=== PATIENT | female | born 1980 | race Caucasian/White ===

== ENCOUNTER 2017-06-23 05:55 | Day surgery (SDC) | payer OTHER ==
--- NOTE | 2017-06-17 15:42 | GHP ---
[f rep st] PREOP HISTORY AND PHYSICAL DATE OF ADMISSION: 06/23/2017 TIME OF SURGERY: 7:15 a.m. SURGERY TO BE PERFORMED: Hysteroscopy, dilation and curettage, Misa endometrial ablation and a la paroscopic salpingectomy. PREOPERATIVE DIAGNOSIS: 1. Severe menometrorrhagia with bleeding disorder. 2. Multiparous, desires permanent elective sterilization. HISTORY OF PRESENT ILLNESS: The patient is a 37-year-old, 3, para 3-0-0-3, who has a longsta nding history of severe menometrorrhagia and heavy vaginal bleeding, as well as dysfunctional uterine bleeding midcycle and episodes of postcoital bleeding. She has a bleeding disorder. 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 We have followed he r for several years and talked about treatment methods to decrease her bleeding, including oral contr aceptive pills, Mirena IUD, or surgical management. The patient was initially unsure if she wanted t o have more children, had she completed her childbearing, and was reluctant to start contraception. She now has had several years of heavy bleeding requiring IV iron transfusions secondary to severe to fatigue during her cycles and post cycles. She has now decided that she has completed her childbear ing and desires treatment for her bleeding disorder. We discussed, again, treatment options with con traception, Mirena IUD, endometrial ablation versus a total laparoscopic hysterectomy. The patient h as had 3 C sections and wishes to avoid a large surgery, wishes to have minimally invasive surgery. Therefore, she wishes to have the hysteroscopy, D and C, and endometrial ablation first. She is awar e that if her bleeding recurs or worsens, she will need a definitive surgery with a hysterectomy. The patient is followed by Dr. Galvan at [facility], who performs her IV iron therap y and monitors her blood work. He has recommended that she get a platelet transfusion if there is bl eeding intraoperatively that is difficult to control. GYNECOLOGICAL HISTORY: She has a normal menstrual triad with menarche at age 14. Cycles are regular , every 28-30 days, length 4-5 days, very heavy because of her bleeding disorders, soaking multiple p ads an hour, passing large clots. She also has bleeding midcycle and postcoital bleeding. She has n o history of any abnormal Paps. Her last Pap was in March of 2017. It was normal. No history of any STDs. PAST OB HISTORY: In February of 2005, she had a viable male by secondary to arrest of descent a nd chorio. In March of 2007, she had a viable female with a repeat , and in August of 2012 , she had a viable male, 6 pounds 12 ounces, repeat . During that , she had cervic al shortening and needed a cerclage. No other complications in the pregnancies. PAST MEDICAL HISTORY: Significant for her severe anemia, reflux, and her artifactual thrombocytopeni a. She occasionally has some vocal cord dysfunction. She has a history of severe mastitis breastfee ding her second baby, required IV antibiotics. PAST SURGICAL HISTORY: History of x3, laparoscopic cholecystectomy in 2004, bunion surgery in 1998. ALLERGIES: She is sensitive to latex. She gets hives from benzoyl peroxide. Bactrim gives her GI u pset. CURRENT MEDICATIONS: Include Prilosec 20 mg daily. SOCIAL HISTORY: She is . She lives with her , Kyle, and her 3 children. She is a re gistered nurse. However, she is currently a ultw-sn-ldyp mom and she home schools her 3 kids. She d enies tobacco, alcohol, or drug use. She has 1 caffeinated beverage a day. FAMILY HISTORY: Her mother passed from complications of diabetes and MRSA. Her 4-year-old is recent ly diagnosed with autism and is in behavioral therapy. Maternal aunt had breast cancer at age 49. H er mother and her maternal grandmother had an ID. Heart disease in her mother and her paternal grand mother. Her father has chronic hypertension, as did her mother, maternal grandfather had emphysema. Mother was a type 1 diabetic and had end-stage renal disease. PHYSICAL EXAMINATION: VITAL SIGNS: Blood pressure is 106/68, weight is 135. GENERAL: She is a pale-appearing, normal female in no acute distress. LUNGS: Clear to auscultation bilaterally. HEART: Regular rate and rhythm, no murmur. ABDOMEN: Soft, nontender, nondistended. Normal bowel sounds. PELVIC: Uterus is anteverted, anteflexed, normal cervix. No adnexal masses. LABORATORY DATA: Most recent ultrasound, she has a very small intramural fibroid measuring less than 1 cm. Her endometrial lining is normal at 0.54. She has normal ovaries. No free fluid. ASSESSMENT AND PLAN: 37-year-old, 3, para 3-0-0-3 with a longstanding history of menometrorr hagia due to artifactual thrombocytopenia. The patient is multiparous, desires permanent elective st erilization and is ready for her endometrial ablation. She was consented for the procedure. She understood the risks and benefits. The risks including ble eding, infection, damage to internal organs, uterus, tubes, ovaries, bowel, bladder, nerves, blood ve ssels, ureters, need for open procedure, need for additional procedures and for the hysteroscopy, bharati ctrolyte abnormalities, and incomplete treatment of bleeding, need for definitive procedure at a late r time. She understood these risks and benefits and agreed to proceed. /[id number]/MODL
[2017-06-22 16:37] LABS: % IMMATURE GRANULYOCYTES 0.2 % (0.0-1.1); ABSOLUTE IMMATURE GRANULOCYTES 0.01 10^3/uL (0.00-0.10); ADD DIFF? NO; ADD MORPH? NO; ADD SCAN? NO; ATYPICAL LYMPHOCYTE FLAG 40 (0-99); FRAGMENT RBC FLAG 0 (0-99); HEMOGLOBIN 13.8 g/dL (12.6-16.3); LEFT SHIFT FLG 0 (0-99); LIPEMIA HEMOLYSIS FLAG 90 (0-99); MEAN CELL HEMOGLOBIN 32.3 pg (27.9-34.1); MEAN CELL HEMOGLOBIN CONCENTR. 34.5 g/dL (32.4-36.7); MEAN CELL VOLUME 93.7 fL (81.5-99.8); MEAN PLATELET VOLUME 12.1 fL (8.7-11.7); PLATELET CLUMPS FLAG 0 (0-99); PLATELET COUNT 210 10^3/uL (150-400); RED BLOOD CELL COUNT 4.27 10^6/uL (4.18-5.33); RED CELL DISTRIBUTION WIDTH 12.2 % (11.5-15.2)
[2017-06-23] MEDS ORDERED: LIDOCAINE 1% 2 ML INJ ID PRN (06:14)
[2017-06-23] MEDS ORDERED: LR 1,000 ML IV ONE (06:14)
[2017-06-23] MEDS ORDERED: LIDOCAINE 1% 2 ML INJ ONE (06:19)
[2017-06-23 06:43] VITALS: PULSE 110
[2017-06-23] MEDS ORDERED: BUPIVACAINE/EPI 0.5% 30 ML SDV ONE (06:58)
[2017-06-23] MEDS ORDERED: SILVER NITRATE APPLICATOR 1 APPL TP ONE (06:59)
[2017-06-23] MEDS ORDERED: MIDAZOLAM 2 MG/2 ML VIAL IVP ONE (07:17)
--- NOTE | 2017-06-23 07:18 | PDANEPAE ---
ANE History of Present Illness laparoscopy ANE Past Medical History - Cardiovascular History Hx Hypertension: No Hx Arrhythmias: No Hx Chest Pain: No Hx Coronary Artery / Peripheral Vascular Disease: No Hx CHF / Valvular Disease: No Hx Palpitations: No Cardiovascular History Comment: Pseudo Thrombocytopenia- blood will clump in any blood tube. - Pulmonary History Hx COPD: No Hx Asthma/Reactive Airway Disease: No Hx Recent Upper Respiratory Infection: No Hx Oxygen in Use at Home: No Hx Sleep Apnea: No Sleep Apnea Screening Result - Last Documented: Negative Pulmonary History Comment: denies asthma- Tx at [facility] for vocal cord Dysfunction - Neurologic History Hx Cerebrovascular Accident: No Hx Seizures: No Hx Dementia: No - Endocrine History Hx Diabetes: No - Renal History Hx Renal Disorders: No - Liver History Hx Hepatic Disorders: No - Neurological & Psychiatric Hx Hx Neurological and Psychiatric Disorders: No - Cancer History Hx Cancer: No - Congenital Disorder History Hx Congenital Disorders: No - GI History Hx Gastrointestinal Disorders: Yes Gastrointestinal History Comment: acid reflux - Laryngeal Pharyngeal Reflux - Other Health History Other Health History: Excessive bleeding w/menses:Tx w/Fereheme x2 April 2017;. vocal cord Dysfunction dx'd at [facility]- tx w/Zantac for GERD - Chronic Pain History Chronic Pain: Yes (painful periods) - Surgical History Prior Surgeries: C Section x3 (1st and last under [place]) 2011, 2006,2004. ana 2004;. L bunionectomy . L ft hardwre removal ; ANE Review of Systems Review of Systems: - Exercise capacity METS (RN): 4 METS ANE Patient History - Allergies Allergies/Adverse Reactions: adhesive tape Adverse Reaction (Mild, Verified 06/23/17 06:31) Rash BENZOPEROXIDE Allergy (Intermediate, Uncoded 06/23/17 06:31) Hives LATEX Allergy (Mild, Uncoded 05/22/17 15:15) Rash - Home Medications Home Medications: Zantac 10/04/15 [Last Taken 06/23/17] Vitamin D3 05/22/17 [Last Taken 06/18/17] - NPO status NPO Since - Liquids (Date): 06/23/17 NPO Since - Liquids (Time): 05:05 NPO Since - Solids (Date): 06/22/17 NPO Since - Solids (Time): 18:30 - Smoking Hx Smoking Status: Never smoked ANE Labs/Vital Signs - Labs Result Diagrams: 06/22/17 15:19 - Vital Signs Blood Pressure: 118/76 Heart Rate: 110 Respiratory Rate: 16 O2 Sat (%): 96 Height: 162.56 cm Weight: 60.781 kg ANE Physical Exam - Airway Mallampati Score: Class 2 Mouth exam: normal dental/mouth exam - Pulmonary Pulmonary: no respiratory distress - Cardiovascular Cardiovascular: regular rate and rhythym - ASA Status ASA Status: II ANE Anesthesia Plan Anesthesia Plan: general endotracheal anesthesia
[2017-06-23] MEDS ORDERED: MIDAZOLAM 2 MG/2 ML VIAL ONE (07:19)
[2017-06-23] MEDS ORDERED: LIDOCAINE 2% 5 ML SDV ONE (07:23)
[2017-06-23] MEDS ORDERED: DEXAMETHASONE 4 MG/ML VIAL ONE (07:24)
[2017-06-23] MEDS ORDERED: PROPOFOL 200 MG/20 ML VIAL ONE (07:24)
[2017-06-23] MEDS ORDERED: ROCURONIUM 50 MG/5 ML VIAL ONE (07:24)
[2017-06-23] MEDS ORDERED: fentaNYL 100 MCG/2 ML INJ ONE ×2 (07:24→09:06)
[2017-06-23] MEDS ORDERED: ceFAZolin 2 GM/DEXTROSE 100 ML IV ONE ×2 (07:26→07:30)
[2017-06-23] MEDS ORDERED: PHENYLEPHRINE HCL 100 MCG/ML SYR ONE (07:48)
[2017-06-23] MEDS ORDERED: ONDANSETRON 4 MG/2 ML VIAL ONE (08:24)
[2017-06-23] MEDS ORDERED: SUGAMMADEX SODIUM 200 MG/2 ML VIAL IVP ONE (08:41)
[2017-06-23] MEDS ORDERED: ONDANSETRON DISINTEGRATING 4 MG TAB PO PRN (08:55)
--- NOTE | 2017-06-23 08:58 | POSTOPPROG ---
Post Op Note Date of Operation: 06/23/17 Surgeon: Shelbie Jennings Anesthesiologist: Dr Evans Bustamante Anesthesia: GET(General Endotracheal) Pre-op Diagnosis: menomenorrhaga, multiparity desires sterilization Post-op Diagnosis: same Procedure: laparoscopic bilateral salpingectomy, dx hysteroscopy Misa endometrial Findings: normal, uterus tubes and ovaries and endometrial cavity Inf/Abcess present in the surg proc area at time of surgery?: No Depth: Organ Space EBL: Minimal Total fluids administered: 1200 Specimen(s): bilateral fallopian tubes
[2017-06-23] MEDS ORDERED: MEPERIDINE 25 MG/ML SYR IVP PRN (09:00)
[2017-06-23] MEDS ORDERED: NALOXONE HCL 0.4 MG/ML INJ IVP PRN (09:00)
[2017-06-23] MEDS ORDERED: ALBUTEROL 3 ML DEYVIAL IH PRN (09:00)
[2017-06-23] MEDS ORDERED: LR 500 ML IV PRN (09:00)
[2017-06-23] MEDS ORDERED: ONDANSETRON 4 MG/2 ML VIAL IVP PRN (09:00)
--- NOTE | 2017-06-23 09:01 | POSTANESTH ---
Post Anesthetic Evaluation Cardiovascular Status: Normal, Stable Respiratory Status: Normal, Stable Level of Consciousness/Mental Status: Can Participate in Eval Pain Control: Adequate, Prn Tx Ordered Nausea/Vomiting Control: Adequate, Prn Tx Ordered Complications Possibly Related to Anesthesia: None Noted
[2017-06-23] MEDS ORDERED: HYDROmorphONE/DILAUDID 1 MG/ML INJ ONE ×2 (09:06→10:06)
[2017-06-23] MEDS: fentaNYL 100 MCG/2 ML INJ IVP PRN ×2 (09:08→09:15)
[2017-06-23] MEDS: HYDROmorphONE/DILAUDID 1 MG/ML INJ IVP PRN ×5 (09:09→10:22)
[2017-06-23 09:32] VITALS: TEMP 97.3
--- NOTE | 2017-06-23 10:05 | GOP ---
[f rep st] OPERATIVE REPORT DATE OF OPERATION: 06/23/2017 SURGEON: Shelbie Jennings MD ANESTHESIA: General. ANESTHESIOLOGIST: Evans Bustamante MD. PREOPERATIVE DIAGNOSIS: 1. Menometrorrhagia. 2. Multiparity; desires permanent elective sterilization. POSTOPERATIVE DIAGNOSIS: PROCEDURE PERFORMED: 1. Laparoscopic bilateral salpingectomy. 2. Diagnostic hysteroscopy, Misa endometrial ablation. FINDINGS: ESTIMATED BLOOD LOSS: Less than 50 cc. INDICATIONS: The patient is a 37-year-old, 3, para 3-0-0-3, with a longstanding history of a severe menometrorrhagia associated with heavy vaginal bleeding and dysfunctional uterine bleeding, l ikely due to her bleeding disorder. She has a functional platelet disorder, artifactual thrombocytop enia, secondary to clumping, and that exacerbates her severe vaginal bleeding. She receives IV iron therapy approximately quarterly to offset her heavy vaginal bleeding with her periods. We have, over many years, discussed treatment options for these periods; and at first she was not sure that she rosa d completed her childbearing; however, after multiple years of bleeding with this, she has decided sh e has completed childbearing and desires to have definitive therapy. We discussed treatment options, and patient chose to have endometrial ablation. Because an endometrial ablation is not adequate con traception. I recommended a laparoscopic bilateral salpingectomy, and patient was in agreement. Deanna smith was consented for the procedure. She understood the risks and benefits; the risks including ble eding, infection, damage to organs (bowel, bladder, nerves, blood vessels, ureters), and also damage to the uterus including possible perforation, electrolyte imbalances, and incomplete treatment of her bleeding. Patient understood these risks and benefits and agreed to proceed. DESCRIPTION OF PROCEDURE: Patient was taken to the operating room where she was placed under general anesthesia without difficulty and intubated. She was prepped and draped in the dorsal lithotomy pos ition. Her bladder had previously been drained due to voiding. An open-sided speculum was placed in the vagina, and a single-tooth tenaculum was used to grasp the a nterior lip of the cervix. An acorn uterine manipulator was placed through the cervix and attached t o the tenaculum. Attention was then turned to the abdominal portion of the procedure. After injection of Marcaine, a 5 mm skin incision was placed in the infraumbilical skin fold, and the atraumatic trocar was placed u nder direct visualization through that site. Pneumoperitoneum was then created with carbon dioxide g as, and we had good visualization of the abdomen. Patient was placed in steep Trendelenburg. After injection of Marcaine, a 1 cm skin incision was made in the left lower quadrant, a 5 mm skin incision was placed in the right lower quadrant, and atraumatic trocars were placed through these incisions u nder direct visualization. This was all performed without difficulty. The left fallopian tube was grasped at the fimbriated end, and the LigaSure device was used to cauter ize and cut along from the fimbria along the mesosalpinx to the cornual region of the uterus. The tu be was cauterized, transected, and removed through the 10 mm port. The right fallopian tube was then grasped at the fimbriated end, and we used the LigaSure to transect along the tube and the mesosalpi nx to the fimbriated end; that was also removed through the 10 mm port. The uterus was normal. The ovaries were normal. The rest of the pelvis was inspected, and appendix was visualized. All organs were normal. The pneumoperitoneum was allowed to escape. The fascia was closed at the left lower qu adrant port with 0 Vicryl in a [id number] fashion, and the skin was closed with Monocryl. Attention was then turned to the hysteroscopy. The acorn uterine manipulator was removed, and an ope n-sided speculum was replaced into the vagina. The uterus sounded to 8 cm, and the estimated cervica l length was approximately 3. The cervix did not need to be dilated. The diagnostic hysteroscope wa s then gently advanced from the cervix to the fundus, and inspection of the uterine cavity revealed n ormal cavity; no endometrial polyps, fibroids, or any abnormal structures in the endometrial cavity. Both tubal ostia were visualized without difficulty. The hysteroscope was then removed. The Minerv a device was placed from the cervix to the fundus, and the balloon was inflated. The cavity assessme nts were passed x2, and the endometrial ablation took place over 120 seconds. The balloons were defl ated, and the device was removed. One pass of the hysteroscope was then repeated, and the cavity was seen to have a good catherine and good effect. The tenaculum was removed. Small areas of bleeding were cauterized with silver nitrate. The speculum was removed. Patient tolerated the procedure well. Sp onge, lap, needle, and instrument counts were correct x2. Patient went to recovery room in good cond ition. IV FLUIDS: 1200 cc. URINE OUTPUT: Not measured. PATHOLOGIC SPECIMEN: Bilateral fallopian tubes. /[id number]/MODL
[2017-06-23] MEDS ORDERED: HYDROCODONE/APAP 5/325 TAB ONE ×2 (10:06→11:36)
[2017-06-23] MEDS: HYDROCODONE/APAP 5/325 TAB PO PRN ×2 (10:07→11:38)
[2017-06-23 10:29] VITALS: RESP 16
[2017-06-23 13:56] VITALS: BP 123/82; O2SAT 94
== END 2017-06-23 13:40 | disposition home or self-care (01) ==
LOC: FSGY 05:55
PROVIDERS: ATTEND Obstetrics & Gynecology
PROC: 0U5B8ZZ Destruction of Endometrium, Via Natural or Artificial Opening Endoscopic (ICD-10-PCS; principal; 2017-06-23 07:15)
PROC: 0UT24ZZ Resection of Bilateral Ovaries, Percutaneous Endoscopic Approach (ICD-10-PCS; principal; 2017-06-23 07:15)
DX: Z30.2 Encounter for sterilization (principal); N92.0 Excessive and frequent menstruation with regular cycle
CPT/HCPCS: J0690; J1100; J1170; J2250; J2370; J2405; J2704; J3010